=== PATIENT | female | born 1965 | race Caucasian/White ===

== ENCOUNTER → 2017-05-27 | Outpatient (CLI) | payer BC ==
--- NOTE | 2017-05-27 16:06 | DI ---
PELVIC ULTRASOUND, 05/27/2017 9:57 AM Clinical History: Uterine leiomyoma. Previous Exam: 05/25/2016. Technique: Transvaginal scans are performed. The uterus measures 75 x 100 x 90 mm in AP, transverse, and longitudinal measurements. Multiple spher ical nodules are present in these range from being inhomogeneous and hypoechoic to being slightly ech ogenic. The larger lesions show increased vascularity. The largest lesions are located on the left wa ll of the body of the uterus and in the posterior wall of the body. The left inferolateral lesion farzana sures approximately 50 x 55 x 55 mm; the left superolateral fibroid measures 50 x 60 x 65 mm; in the posterior lesion measures 35 x 40 x 40 mm. Multiple smaller fibroids are present and these were not m easured. The central uterine stripe measures 6 mm. Neither ovary could be visualized because of the s ize of the uterus. There are no fluid collections or masses. Readin. Enlarged uterus secondary to multiple fibroids. The 3 largest lesions are described above. There are multiple smaller lesions scattered throughout the uterus. The central uterine stripe measures 6 m m. 2. Neither ovary could be visualized, probably because of the size of the uterus.
== END ==
LOC: US 09:53
PROVIDERS: ATTEND Obstetrics & Gynecology
DX: D25.9 Leiomyoma of uterus, unspecified (principal)
CPT/HCPCS: 76830